=== PATIENT | male | born 1980 | race Two or more races ===

== ENCOUNTER 2016-07-19 10:54 | Emergency (ER) | payer OTHER ==
[2016-07-19 11:12] VITALS: BP 141/68; PULSE 66; RESP 16; O2SAT 98
[2016-07-19] MEDS ORDERED: LETS SOLN TOPICAL 1 EA SYR TP ONE ×2 (11:13→11:17)
[2016-07-19 11:23] VITALS: TEMP 99.1
--- NOTE | 2016-07-19 12:49 | UCPHY ---
H & P Time Seen by Provider: 07/19/16 11:16 Patient Type: Established HPI/ROS: This patient sustained a laceration the palm of his left hand trying to open a coconut with a knife at home shortly prior to arrival reports moderate pain to the site of the laceration the left palm. The injury occurred shortly prior to arrival and moderate bleeding that was slowed with direct pressure. He denies any other associated symptoms. ROS: No numbness or tingling. No difficulty moving the fingers of the left hand. 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 General: No acute distress Pupils equal and react to light. Extraocular motions are intact. Cardiac: Brisk capillary refill is intact throughout. Skin: No rash or pallor. 2 cm full-thickness laceration to the mid left palm of the hand. On direct examination appreciate no evidence of tendon injury. No deeper structures appear to be injured beyond the subcutaneous tissue and there is moderate bleeding. No pulsatile bleeding. Neuro: Alert no sensory motor deficits the affected hand are appreciated. Constitutional: Initial Vital Signs Temperature (C) 37.3 C 07/19/16 11:03 Heart Rate 66 07/19/16 11:03 Respiratory Rate 16 07/19/16 11:03 Blood Pressure 141/68 H 07/19/16 11:03 O2 Sat (%) 98 07/19/16 11:03 O2 Delivery Mode Room Air Allergies/Adverse Reactions: No Known Allergies Allergy (Verified 07/19/16 11:08) Home Medications: Medication Instructions Recorded Advair 250/50 (*) 02/24/16 Nexium 02/24/16 Hydrocodone/APAP 5/325 [[place] 1 - 2 tab PO Q4PRN PRN #12 tab 07/19/16 5/325 (*)] MDM/Departure - MDM Procedures: The wound is 2 cm as described physical exam. The wound was copiously irrigated with saline. The wound was explored for foreign bodies and none were found. The wound was prepped and draped in the normal sterile fashion. The wound was anesthetized using let solution followed by 50 50 mix of 0 0.5% Marcaine and 1% plain lidocaine, 27 gauge needle, 2 mL with good effect.. The edges were reapproximated using 4 0 Ethilon a P3 needle-7 running sutures with good hemostasis and cosmesis. The patient tolerated the procedure well. There were no complications. Medications Given: Discontinued Medications Tetracaine/Epinephrine/Lidocaine (Lets Soln Topical) 1 ea TP EDNOW ONE Stop: 07/19/16 11:18 Last Admin: 07/19/16 11:20 Dose: 1 ea ED Course/Re-evaluation: Discussion: hAnd laceration without evidence of Neuro injury, significant vascular injury or tendon injury. - Depart Disposition: Home, Routine, Self-Care Clinical Impression: Hand laceration Condition: Good Instructions: Care For Your Stitches (ED) Additional Instructions: Diagnosis: Hand laceration Plan: Keep the wound clean and dry for the next 2 days. Then clean daily with warm soapy water Tylenol or Vicodin if needed for pain control. No driving, alcohol or come Vicodin. Return for suture removal in 10-12 days. Return sooner for redness, discharge or other concerns for infection Prescriptions: Hydrocodone/APAP 5/325 [[place] 5/325 (*)] 1 - 2 tab PO Q4PRN PRN #12 tab PRN Reason: Pain Referrals: VELABROL,UNKNOWN [Other] - As per Instructions - PQRS PQRS Measurement: NA
== END 2016-07-19 13:05 | disposition home or self-care (01) ==
LOC: CED 10:54
PROC: 0HQGXZZ Repair Left Hand Skin, External Approach (ICD-10-PCS; principal; 2016-07-19)
DX: S61.412A Laceration without foreign body of left hand, initial encounter (principal); W26.0XXA Contact with knife, initial encounter; Y92.019 Unspecified place in single-family (private) house as the place of occurrence of the external cause; Y93.G1 Activity, food preparation and clean up
CPT/HCPCS: G0463-PO

== ENCOUNTER 2016-09-07 14:34 | Emergency (ER) | payer OTHER ==
[2016-09-07 14:50] VITALS: RESP 16; O2SAT 100
[2016-09-07] MEDS ORDERED: ASPIRIN 81 MG CHEWABLE TAB PO ONE (14:53)
--- NOTE | 2016-09-07 14:53 | CPEKG ---
Heart Rate: 71 RR Interval: 845 P-R Interval: 136 QRSD Interval: 88 QT Interval: 400 QTC Interval: 435 P [place]: 73 QRS [place]: 43 T Wave [place]: 9 EKG Severity - NORMAL ECG - EKG Impression: SINUS RHYTHM Electronically Signed By: Yogesh Lux 07-Sep-2016 15:21:40
[2016-09-07 16:03] LABS: % IMMATURE GRANULYOCYTES 0.4 % (0.0-1.1); ABSOLUTE IMMATURE GRANULOCYTES 0.03 10^3/uL (0.00-0.10); ADD DIFF? NO; ADD MORPH? NO; ADD SCAN? NO; ATYPICAL LYMPHOCYTE FLAG 0 (0-99); FRAGMENT RBC FLAG 0 (0-99); HEMATOCRIT 41.5 % (40.0-51.0); HEMOGLOBIN 14.7 g/dL (13.7-17.5); LEFT SHIFT FLG 0 (0-99); LIPEMIA HEMOLYSIS FLAG 90 (0-99); MEAN CELL HEMOGLOBIN 30.1 pg (27.9-34.1); MEAN CELL HEMOGLOBIN CONCENTR. 35.4 g/dL (32.4-36.7); MEAN CELL VOLUME 84.9 fL (81.5-99.8); MEAN PLATELET VOLUME 10.2 fL (8.7-11.7); PLATELET CLUMPS FLAG 40 (0-99); PLATELET COUNT 274 10^3/uL (150-400); RED BLOOD CELL COUNT 4.89 10^6/uL (4.40-6.38); RED CELL DISTRIBUTION WIDTH 12.5 % (11.5-15.2)
--- NOTE | 2016-09-07 16:03 | UCPHY ---
H & P Patient Type: Established Chief Complaint Nursing Narrative: C/o chest heaviness/pressure, SOB with exertion, weakness, and fagitue x 2 days. Denies cough. Time Seen by Provider: 09/07/16 15:51 HPI/ROS: CHIEF COMPLAINT: Dyspnea on exertion HISTORY OF PRESENT ILLNESS: Patient is a 36-year-old man otherwise healthy who comes to the Urgent Care complaining of dyspnea on exertion for the last 2 days. He states that when he walks or climbs stairs he feels short of breath and has some chest tightness. He does not have any known cardiac disease. He does have a history of mild reactive airway disease. He has been using his albuterol inhaler with only minimal improvement. He has not had a fever. He does have a mild sore throat last week that is currently resolving. No runny nose or sinus congestion. No cough. No abdominal pain or nausea. At rest he is asymptomatic. He did travel to [place] 2 weeks ago. He has not had any leg swelling or pain other than his calf cramping 2 nights ago after playing basketball.. REVIEW OF SYSTEMS: Constitutional: denies: chills, fever, recent illness, recent injury EENTM: denies: blurred vision, double vision, nose congestion Respiratory: See HPI Cardiac: See HPI Gastrointestinal/Abdominal: denies: abdominal pain, diarrhea, nausea, vomiting, blood streaked stools Genitourinary: denies: dysuria, frequency, hematuria, pain Musculoskeletal: denies: joint pain, muscle pain Skin: denies: lesions, rash, jaundice, bruising Neurological: denies: headache, numbness, paresthesia, tingling, dizziness, weakness Hematologic/Lymphatic: denies: blood clots, easy bleeding, easy bruising Immunologic/allergic: denies: HIV/AIDS, transplant EXAM: GENERAL: Well-appearing, well-nourished and in no acute distress. HEAD: Atraumatic, normocephalic. EYES: Pupils equal round and reactive to light, extraocular movements intact, sclera anicteric, conjunctiva are normal. ENT: TMs normal, nares patent, oropharynx clear without exudates. Moist mucous membranes. NECK: Normal range of motion, supple without lymphadenopathy or JVD. LUNGS: Breath sounds clear to auscultation bilaterally and equal. No wheezes rales or rhonchi. HEART: Regular rate and rhythm without murmurs, rubs or gallops. ABDOMEN: Soft, nontender, normoactive bowel sounds. No guarding, no rebound. No masses appreciated. BACK: No CVA tenderness, no spinal tenderness, step-offs or deformities EXTREMITIES: Normal range of motion, no pitting or edema. No clubbing or cyanosis. NEUROLOGICAL: Cranial nerves II through XII grossly intact. Normal speech, normal gait. 5/5 strength, normal movement in all extremities, normal sensation PSYCH: Normal mood, normal affect. SKIN: Warm, dry, normal turgor, no visible rashes or lesions. Source: Patient Exam Limitations: No limitations - Personal History Current Tetanus Diphtheria and Acellular Pertussis (TDAP): Yes Tetanus Vaccine Date: 2013 - Medical/Surgical History Hx Asthma: No Hx Chronic Respiratory Disease: No Hx Diabetes: No Hx Cardiac Disease: No Hx Renal Disease: No Hx Cirrhosis: No Hx Alcoholism: No Hx HIV/AIDS: No Hx Splenectomy or Spleen Trauma: No Other PMH: Epididymitis/prostatitis. ACID REFLUX. VESTIBULAR ISSUES IN THE PAST, respiratory related allergies - Family History Significant Family History: No pertinent family hx - Social History Smoking Status: Never smoked Alcohol Use: Sober Drug Use: None Constitutional: Initial Vital Signs Temperature (C) 36.7 C 09/07/16 14:48 Heart Rate 76 09/07/16 14:48 Respiratory Rate 16 09/07/16 14:48 Blood Pressure 125/73 H 09/07/16 14:48 O2 Sat (%) 100 09/07/16 14:48 O2 Delivery Mode Room Air Allergies/Adverse Reactions: No Known Allergies Allergy (Verified 09/07/16 14:50) Home Medications: Medication Instructions Recorded Advair 100/50 (*) 09/07/16 Nexium 09/07/16 Medical Decision Making - Diagnostics EKG Interpretation: An EKG obtained and was read and documented in trace view. Please see trace view for full reading and report. Sinus rhythm, no acute ischemic changes, nonspecific T-wave inversions inferiorly Imaging: Imaging Impressions Chest X-Ray 09/07/16 15:59 Impression: Normal chest x-ray. X-ray: [chest x-ray ] was obtained. I viewed the images myself on the PACS system. My interpretation of the images is: Negative. ED Course/Re-evaluation: The patient is feeling completely asymptomatic. We discussed his lab tests, EKG and chest x-ray which are reassuring. He did have a viral type infection within the last 2 weeks. This may be pleurisy costochondritis. I recommended he start ibuprofen three times daily and follow up with his primary doctor within the next 48 hours. He understands and agrees with this plan. He declines further workup or testing at this time. His vital signs remained stable. Differential Diagnosis: Partial list of the Differential diagnosis considered include but were not limited to; costochondritis, pleurisy, acute coronary disease and although unlikely based on the history and physical exam, I also considered , PE pneumonia, dissection, pneumothorax. I discussed these differential diagnoses and the plan with the patient as well as the usual and expected course. The patient understands that the diagnosis is provisional and that in medicine we are not always correct and that further workup is often warranted. Usual and customary warnings were given. All of the patient's questions were answered. The patient was instructed to return to the emergency department should the symptoms at all worsen or return, otherwise to followup with the physician as we discussed. - Data Points Laboratory Results: Laboratory Results 09/07/16 15:04 09/07/16 15:04 09/07/16 09/07/16 09/07/16 15:04 15:04 15:04 WBC 7.42 10^3/uL 10^3/uL (3.80-9.50) RBC 4.89 10^6/uL 10^6/uL (4.40-6.38) Hgb 14.7 g/dL g/dL (13.7-17.5) Hct 41.5 % % (40.0-51.0) MCV 84.9 fL fL (81.5-99.8) MCH 30.1 pg pg (27.9-34.1) MCHC 35.4 g/dL g/dL (32.4-36.7) RDW 12.5 % % (11.5-15.2) Plt Count 274 10^3/uL 10^3/uL (150-400) MPV 10.2 fL fL (8.7-11.7) Neut % (Auto) 66.3 % % (39.3-74.2) Lymph % (Auto) 22.0 % % (15.0-45.0) [place] % (Auto) 6.7 % % (4.5-13.0) Eos % (Auto) 4.2 % % (0.6-7.6) Baso % (Auto) 0.4 % % (0.3-1.7) Nucleat RBC Rel Count 0.0 % % (0.0-0.2) Absolute Neuts (auto) 4.92 10^3/uL 10^3/uL (1.70-6.50) Absolute Lymphs (auto) 1.63 10^3/uL 10^3/uL (1.00-3.00) Absolute Monos (auto) 0.50 10^3/uL 10^3/uL (0.30-0.80) Absolute Eos (auto) 0.31 10^3/uL 10^3/uL (0.03-0.40) Absolute Basos (auto) 0.03 10^3/uL 10^3/uL (0.02-0.10) Absolute Nucleated RBC 0.00 10^3/uL 10^3/uL (0-0.01) Immature Gran % 0.4 % % (0.0-1.1) Immature Gran # 0.03 10^3/uL 10^3/uL (0.00-0.10) D-Dimer < 0.27 ug/mLFEU ug/mLFEU (0.00-0.50) Sodium 145 mEq/L H mEq/L (134-144) Potassium 4.2 mEq/L mEq/L (3.5-5.2) Chloride 106 mEq/L mEq/L (97-110) Carbon Dioxide 25 mEq/l mEq/l (22-31) Anion Gap 14 mEq/L mEq/L (8-16) BUN 11 mg/dL mg/dL (7-23) Creatinine 0.8 mg/dL mg/dL (0.7-1.3) Estimated GFR > 60 Glucose 116 mg/dL H mg/dL (70-100) Calcium 9.3 mg/dL mg/dL (8.5-10.4) Troponin I < 0.012 ng/mL ng/mL (0-0.034) Medications Given: Discontinued Medications Aspirin (Aspirin) 324 mg PO EDNOW ONE Stop: 09/07/16 14:54 Last Admin: 09/07/16 14:53 Dose: 324 mg Departure - Departure Disposition: Home, Routine, Self-Care Clinical Impression: Pleurisy Condition: Fair Instructions: Pleurisy (ED) Referrals: [facility],PRIMARY CARE [Other] - As per Instructions - PQRS PQRS Measurement: Not applicable
[2016-09-07 16:09] LABS: ANION GAP 14 mEq/L (8-16); CALCIUM 9.3 mg/dL (8.5-10.4); CARBON DIOXIDE 25 mEq/l (22-31); CHLORIDE 106 mEq/L (97-110); CREATININE 0.8 mg/dL (0.7-1.3); GLOMERULAR FILTRATION RATE > 60; GLUCOSE 116 mg/dL (70-100); POTASSIUM 4.2 mEq/L (3.5-5.2); SODIUM 145 mEq/L (134-144)
[2016-09-07 16:21] LABS: TROPONIN I < 0.012 ng/mL (0-0.034)
[2016-09-07 16:48] VITALS: TEMP 97.9
[2016-09-07 17:13] VITALS: BP 111/79; PULSE 65
== END 2016-09-07 17:13 | disposition home or self-care (01) ==
LOC: CED 14:34
DX: R09.1 Pleurisy (principal)
CPT/HCPCS: 71020-PO; 80048-PO; 84484-PO; 85025-PO; 85378-PO; G0463-PO